=== PATIENT | female | born 1990 ===

== ENCOUNTER 2018-11-06 02:52 | Emergency (ER) | payer MEDICAID ==
[2018-11-06 03:00] VITALS: O2SAT 100
--- NOTE | 2018-11-06 03:23 | ED PDOC ---
HPI: Headache Time Seen by Provider: 11/06/18 03:06 Chief Complaint (Nursing): Headache Chief Complaint (Provider): Headache History Per: Patient History/Exam Limitations: no limitations Onset/Duration Of Symptoms: Days (x5) Current Symptoms Are (Timing): Still Present Quality: "Pain" Associated Symptoms: Photophobia, Vomiting Additional Complaint(s): 28 year old female with a history of asthma and migraines presents to the ED for evaluation of a headache for five days. Patient reports last night at 1 am, the headache became severe and she experienced three episodes of non- bloody, non-bilious vomiting. It is located in the frontal region of her head and radiates to the back. Pain is associated with photosensitivity. Patient describes it as "worst headache of her life". She was seen five days ago at the clinic and given Fioricet which was originally working until last night. Denies fever, neck stiffness and back pain. PMD: Dr. Tabatha Vogel - Risk Factors SAH Risk Factors: Pos: Worst Headache Of Life Past Medical History Reviewed: Historical Data, Nursing Documentation, Vital Signs Vital Signs: Last Vital Signs Temp 97.8 F 11/06/18 02:57 Pulse 113 H 11/06/18 02:57 Resp 18 11/06/18 02:57 BP 115/70 11/06/18 02:57 Pulse Ox 100 11/06/18 02:57 Primary Care Provider: FAMILY PROVIDER,NO - Medical History PMH: Asthma, Migraine - Surgical History Surgical History: Cholecystectomy Other surgeries: mandibular reconstruction - Family History Family History: States: No Known Family Hx - Home Medications Home Medications: Ambulatory Orders Medication Instructions Recorded Metoclopramide [Reglan] 10 mg PO Q6 PRN #12 tab 11/06/18 Sulfamethoxazole/Trimethoprim 1 tab PO BID #20 tab 11/06/18 [Bactrim DS 800 mg-160 mg] - Allergies Allergies/Adverse Reactions: Allergies Allergy/AdvReac Type Severity Reaction Status Date / Time latex Allergy RASH Verified 11/06/18 03:00 Review of Systems ROS Statement: Except As Marked, All Systems Reviewed And Found Negative Constitutional: Negative for: Fever Eyes: Positive for: Other (photosensitivity) Gastrointestinal: Positive for: Vomiting Musculoskeletal: Negative for: Neck Pain (or stiffness), Back Pain Neurological: Positive for: Headache Physical Exam - Reviewed Nursing Documentation Reviewed: Yes Vital Signs Reviewed: Yes - Physical Exam Appears: Positive for: Uncomfortable Head Exam: Positive for: ATRAUMATIC, NORMAL INSPECTION, NORMOCEPHALIC Skin: Positive for: Normal Color, Warm, Dry Eye Exam: Positive for: Normal appearance, EOMI, PERRL. Negative for: Other (photophobia) Neck: Positive for: Normal, Painless ROM, Supple (no nuchal rigidity) Cardiovascular/Chest: Positive for: Regular Rate, Rhythm. Negative for: Murmur Respiratory: Positive for: Normal Breath Sounds. Negative for: Respiratory Distress Gastrointestinal/Abdominal: Positive for: Normal Exam, Soft. Negative for: Tenderness Back: Positive for: Normal Inspection. Negative for: L CVA Tenderness, R CVA Tenderness Extremity: Positive for: Normal ROM (x 4). Negative for: Deformity Neurological/Psych: Positive for: Awake, Alert, Normal Tone, Oriented (x 3). Negative for: Motor/Sensory Deficits, Facial Droop - Laboratory Results Result Diagrams: 11/06/18 03:25 11/06/18 03:25 - ECG O2 Sat by Pulse Oximetry: 100 (RA) Pulse Ox Interpretation: Normal Medical Decision Making Medical Decision Makin:07 Impression: 28 year old female with an acute migraine Initial Plan: --CT Head w/o contrast --CMP --CBC --Urine preg --Urine dip --NS IV 1,000 mls --Reglan 10 mg IVPB --UA 04:59 CT FINDINGS: There is a mabel cisterna magna. Normal variant. Mucous retention cyst in the right sphenoid sinus, benign chronic finding. Normal size of the ventricles and extra-axial spaces for the patient's age. Normal white matter tracts of the supratentorial brain. Normal basal ganglia and thalami. Normal brainstem. Normal cerebellum. There is no demonstrated extra-axial, intraparenchymal, or intraventricular hemorrhage. There are no findings of an acute ischemic infarction. Normal calvarium. There is no demonstrated fracture. Normal soft tissue structures. Normal visualized paranasal sinuses. IMPRESSION: Mabel cisterna magna. Normal variant. Mucous retention cyst in the right sphenoid sinus, benign chronic finding. 06:11 Labs reviewed and reveal a urinary tract infection. Patient reports marked im provement in symptoms. Patient will be given an initial dose of Rocephin in the ED and discharged with prescriptions for Reglan and Bactrim. Diagnosis is migraine and UTI Scribe Attestation: Documented by Beyrl Alcaraz, acting as a scribe Allison Hand MD Provider Scribe Attestation: All medical record entries made by the Scribe were at my direction and personally dictated by me. I have reviewed the chart and agree that the record accurately reflects my personal performance of the history, physical exam, medical decision making, and the department course for this patient. I have also personally directed, reviewed, and agree with the discharge instructions and disposition Disposition - Clinical Impression Clinical Impression: UTI (urinary tract infection), Migraine - Patient ED Disposition Is Patient to be Admitted: No - Disposition Referrals: Citlali Santacruz DO [Primary Care Provider] - Disposition: Routine/Home Disposition Time: 06:12 Condition: IMPROVED Prescriptions: Metoclopramide [Reglan] 10 mg PO Q6 PRN #12 tab PRN Reason: headache/nausea/vomiting Sulfamethoxazole/Trimethoprim [Bactrim DS 800 mg-160 mg] 1 tab PO BID #20 tab Instructions: Urinary Tract Infections in Adults, Migraine Headache (DC) Forms: [employer] (Romansh) Print Language: [place]
[2018-11-06] MEDS: Sodium Chloride 0.9% 1,000 ML IV STA ×2 (03:26→04:44)
[2018-11-06 04:02] LABS: ALB/GLOB RATIO 1.4 (1.0-2.1); ALBUMIN 4.1 g/dL (3.5-5.0); ALT/SGPT 32 U/L (9-52); AST/SGOT 28 U/L (14-36); BASO % 0.1 % (0.0-2.0); BLOOD UREA NITROGEN 13 mg/dl (7-17); EOS # 0.1 K/uL (0.0-0.7); EOS % 0.5 % (0.0-4.0); GFR NON-AFRICAN AMERICAN > 60; HEMOGLOBIN 12.8 g/dL (12.0-16.0); LYMPH # 1.3 K/uL (1.0-4.3); LYMPH % 7.6 % (20.0-40.0); MEAN CORPUSCULAR HEMOGLOBIN 26.4 pg (27.0-31.0); MEAN CORPUSCULAR HGB CONC 32.6 g/dL (33.0-37.0); MEAN PLATELET VOLUME 9.6 fl (7.2-11.7); MONO # 1.2 K/uL (0.0-0.8); MONO % 6.9 % (0.0-10.0); NEUT # 14.3 K/uL (1.8-7.0); NEUT % 84.9 % (50.0-75.0); NRBC % 0.2 % (0.0-0.0); PLATELET COUNT 222 K/uL (130-400); RBC 4.83 Mil/uL (3.80-5.20); RED CELL DISTRIBUTION WIDTH 12.5 % (11.5-14.5); WHITE BLOOD COUNT 16.8 K/uL (4.8-10.8)
[2018-11-06] MEDS ORDERED: Sodium Chloride 0.9% 1,000 ML IV STA (04:41)
[2018-11-06 04:54] LABS: ANISOCYTOSIS SLIGHT; BANDS 2 % (0-2); EOSINOPHIL 2 % (0-7); HYPOCHROMIC SLIGHT; LYMPHOCYTE 6 % (20-50); MONOCYTE 4 % (0-10); NEUTROPHIL 86 % (42-75); PLATELET ESTIMATE NORMAL (NORMAL); TOTAL CELLS COUNTED 100
[2018-11-06 05:09] LABS: SQUAMOUS EPITHIAL 3 /hpf (0-5); URINE BACTERIA RARE (<OCC); URINE BILIRUBIN NEGATIVE (NEGATIVE); URINE BLOOD NEGATIVE (NEGATIVE); URINE CLARITY CLOUDY (Clear); URINE COLOR YELLOW (YELLOW); URINE GLUCOSE (UA) NEG (NEGATIVE); URINE LEUKOCYTE ESTERASE LARGE Leu/uL (Negative); URINE PROTEIN NEGATIVE (NEGATIVE); URINE UROBILINOGEN 0.2-1.0 mg/dL (0.2-1.0)
[2018-11-06] MEDS ORDERED: cefTRIAXone (Rocephin) 1 gm Inj ONE (06:11)
[2018-11-06 06:41] VITALS: BP 101/54; PULSE 102; RESP 16; TEMP 98.4
--- NOTE | 2018-11-06 12:23 | CT ---
Date of service: 11/06/2018 PROCEDURE: CT HEAD WITHOUT CONTRAST. HISTORY: headache COMPARISON: None available. TECHNIQUE: Axial computed tomography images were obtained through the head/brain without intravenous contrast. Radiation dose: Total exam DLP = 738.38 mGy-cm. This CT exam was performed using one or more of the following dose reduction techniques: Automated exposure control, adjustment of the mA and/or kV according to patient size, and/or use of iterative reconstruction technique. FINDINGS: HEMORRHAGE: No intracranial hemorrhage. BRAIN: There is a mabel cisterna magna which represents a normal anatomic variant. No atrophy or chronic microvascular ischemic changes. VENTRICLES: Unremarkable. No hydrocephalus. CALVARIUM: Unremarkable. PARANASAL SINUSES: Unremarkable as visualized. No significant inflammatory changes. Small mucous retention cyst in the right side of the sphenoid sinus MASTOID AIR CELLS: Unremarkable as visualized. No inflammatory changes. OTHER FINDINGS: The report concurs with the preliminary [facility] report IMPRESSION: No acute intracranial findings
== END 2018-11-06 06:58 | disposition home or self-care (01) ==
LOC: H.ER 02:52
DX: N39.0 Urinary tract infection, site not specified (principal); G43.909 Migraine, unspecified, not intractable, without status migrainosus; J45.909 Unspecified asthma, uncomplicated; Z79.899 Other long term (current) drug therapy
CPT/HCPCS: 70450; 80053; 81003; 81025; 85025; 96361; 96365; 96367; 99285; J0696; J2765; J7030